=== PATIENT | male | born 1985 | race Caucasian/White ===

== ENCOUNTER 2017-12-25 17:13 | Emergency (ER) | payer OTHER ==
[2017-12-25] MEDS ORDERED: SODIUM CHLORIDE 0.9% 1,000 ML IV STA (17:56)
[2017-12-25] MEDS ORDERED: SODIUM CHLORIDE 0.9% 500 ML IV STA (17:56)
--- NOTE | 2017-12-25 17:58 | XR ---
EXAMINATION TYPE: XR chest 1V portable DATE OF EXAM: 12/25/2017 COMPARISON: NONE HISTORY: Chest pain and shortness of breath for 2 weeks TECHNIQUE: Single frontal view of the chest is obtained. FINDINGS: There is no focal air space opacity, pleural effusion, or pneumothorax seen. The cardiac silhouette size is upper limits of normal size exaggerated by the portable nature of examination. T he osseous structures are intact. IMPRESSION: No acute cardiopulmonary process.
[2017-12-25 17:59] VITALS: RESP 20
[2017-12-25] MEDS ORDERED: IPRATROPIUM 0.5 MG/2.5 ML NEBU INHALATION STA (18:11)
[2017-12-25] MEDS ORDERED: methylPREDNISolone SOD SUCCI 125 MG/2 ML VIAL IV STA (18:11)
[2017-12-25] MEDS ORDERED: ALBUTEROL NEBULIZED 2.5 MG/3 ML INHALATION STA (18:11)
[2017-12-25 18:25] LABS: Basophils # (A) 0.1 k/uL (0-0.2); Basophils % (A) 0 %; Eosinophils # (A) 0.3 k/uL (0-0.7); Eosinophils % (A) 2 %; HCT 47.2 % (39.0-53.0); HGB 15.8 gm/dL (13.0-17.5); Lymphocytes # (A) 3.5 k/uL (1.0-4.8); Lymphocytes % (A) 21 %; MCH 28.5 pg (25.0-35.0); MCHC 33.4 g/dL (31.0-37.0); MCV 85.6 fL (80.0-100.0); Mean Platelet Volume 7.4; Monocytes # (A) 0.7 k/uL (0-1.0); Monocytes % (A) 4 %; Neutrophils # (A) 12.1 k/uL (1.3-7.7); Neutrophils % (A) 72 %; Platelet Count 260 k/uL (150-450); RBC 5.52 m/uL (4.30-5.90); RDW 14.4 % (11.5-15.5); WBC 16.9 k/uL (3.8-10.6)
--- NOTE | 2017-12-25 18:26 | ED ---
General Adult HPI - General Chief complaint: Shortness of Breath Stated complaint: SOB, palpitations Time Seen by Provider: 12/25/17 17:41 Source: patient, RN notes reviewed, old records reviewed Mode of arrival: ambulatory Limitations: no limitations - History of Present Illness Initial comments: This is a 32-year-old male the ER for evaluation. They presents for evaluation significant shortness of breath. No specific chest pain just mainly exertional shortness of breath and dizziness and going on for quite some time. Patient has no known prior medical history of similar complaints. Patient states her family states patient does have history of factor V Leiden. Patient again has no chest pain. No recent travel history no significant sick contacts no surgical history. We will history of asthma although he feels like he is not wheezing, patient and nonsmoker. Patient states shortness of breath for 2 weeks increasing with significant exertion, today he could not even do simple tasks - Related Data Home Medications Medication Instructions Recorded Confirmed No Known Home Medications 12/25/17 12/25/17 Allergies Allergy/AdvReac Type Severity Reaction Status Date / Time cefaclor [From Ceclor] Allergy Unknown Verified 12/25/17 17:55 Childhood Review of Systems ROS Statement: Those systems with pertinent positive or pertinent negative responses have been documented in the HPI. ROS Other: All systems not noted in ROS Statement are negative. Past Medical History Past Medical History: Asthma History of Any Multi-Drug Resistant Organisms: None Reported Past Surgical History: Orthopedic Surgery Additional Past Surgical History / Comment(s): ankle surgery, tibia/fibula surgery Past Psychological History: No Psychological Hx Reported Smoking Status: Former smoker Past Alcohol Use History: Occasional Past Drug Use History: None Reported General Exam Limitations: no limitations General appearance: alert, in no apparent distress, anxious Head exam: Present: atraumatic, normocephalic, normal inspection Eye exam: Present: normal appearance, PERRL, EOMI. Absent: scleral icterus, conjunctival injection, periorbital swelling ENT exam: Present: normal exam, mucous membranes moist Neck exam: Present: normal inspection. Absent: tenderness, meningismus, lymphadenopathy Respiratory exam: Present: normal lung sounds bilaterally, accessory muscle use , decreased breath sounds, prolonged expiratory. Absent: respiratory distress, wheezes, rales, rhonchi, stridor Cardiovascular Exam: Present: normal rhythm, tachycardia, normal heart sounds. Absent: systolic murmur, diastolic murmur, rubs, gallop, clicks GI/Abdominal exam: Present: soft, normal bowel sounds. Absent: distended, tenderness, guarding, rebound, rigid Extremities exam: Present: normal inspection, full ROM, normal capillary refill. Absent: tenderness, pedal edema, joint swelling, calf tenderness Back exam: Present: normal inspection Neurological exam: Present: alert, oriented X3, CN II-XII intact Psychiatric exam: Present: normal affect, normal mood Skin exam: Present: warm, dry, intact, normal color. Absent: rash Course Vital Signs 12/25/17 12/25/17 12/25/17 17:28 17:57 18:49 Temperature 98.9 F Pulse Rate 119 H 111 H Respiratory 25 H 20 Rate Blood Pressure 125/76 O2 Sat by Pulse 86 L Oximetry 12/25/17 12/25/17 19:04 19:34 Temperature Pulse Rate 106 H 113 H Respiratory Rate Blood Pressure O2 Sat by Pulse Oximetry - Reevaluation(s) Reevaluation #1: 12/25/17 21:04 Spoke with patient and family at length regarding findings and symptoms and Reevaluation #2: 12/25/17 21:04 Medical records were thoroughly reviewed Reevaluation #3: 12/25/17 21:04 Spoke with [facility] regarding transfer, they are acceptance EKG Findings - EKG Comments: EKG Findings:: EKG shows sinus tachycardia rate 109, HI 140, QRS 90, QTC 500 Medical Decision Making - Medical Decision Making 30 female the ER for evaluation of significant shortness of breath and exertional dyspnea, positive PE, will transfer from [facility] secondary to hypoxia, right heart strain - Lab Data Result diagrams: 12/25/17 18:13 12/25/17 18:13 Lab Results 12/25/17 12/25/17 12/25/17 Range/Units 18:13 18:13 18:13 WBC 16.9 H (3.8-10.6) k/uL RBC 5.52 (4.30-5.90) m/uL Hgb 15.8 (13.0-17.5) gm/dL Hct 47.2 (39.0-53.0) % MCV 85.6 (80.0-100.0) fL MCH 28.5 (25.0-35.0) pg MCHC 33.4 (31.0-37.0) g/dL RDW 14.4 (11.5-15.5) % Plt Count 260 (150-450) k/uL Neutrophils % 72 % Lymphocytes % 21 % Monocytes % 4 % Eosinophils % 2 % Basophils % 0 % Neutrophils # 12.1 H (1.3-7.7) k/uL Lymphocytes # 3.5 (1.0-4.8) k/uL Monocytes # 0.7 (0-1.0) k/uL Eosinophils # 0.3 (0-0.7) k/uL Basophils # 0.1 (0-0.2) k/uL PT (9.0-12.0) sec INR (<1.2) APTT (22.0-30.0) sec D-Dimer (<0.60) mg/L FEU Sodium 140 (137-145) mmol/L Potassium 4.5 (3.5-5.1) mmol/L Chloride 107 (98-107) mmol/L Carbon Dioxide 23 (22-30) mmol/L Anion Gap 10 mmol/L BUN 14 (9-20) mg/dL Creatinine 1.09 (0.66-1.25) mg/dL Est GFR (CKD-EPI)AfAm >90 (>60 ml/min/1.73 sqM) Est GFR (CKD-EPI)NonAf 89 (>60 ml/min/1.73 sqM) Glucose 99 (74-99) mg/dL Calcium 9.4 (8.4-10.2) mg/dL Magnesium 2.0 (1.6-2.3) mg/dL Total Bilirubin 1.8 H (0.2-1.3) mg/dL AST 28 (17-59) U/L ALT 35 (21-72) U/L Alkaline Phosphatase 76 (38-126) U/L Total Creatine Kinase 134 (55-170) U/L CK-MB (CK-2) 1.9 (0.0-2.4) ng/mL CK-MB (CK-2) Rel Index 1.4 Troponin I 0.177 H* (0.000-0.034) ng/mL NT-Pro-B Natriuret Pep pg/mL Total Protein 6.9 (6.3-8.2) g/dL Albumin 4.1 (3.5-5.0) g/dL 12/25/17 12/25/17 Range/Units 18:13 18:13 WBC (3.8-10.6) k/uL RBC (4.30-5.90) m/uL Hgb (13.0-17.5) gm/dL Hct (39.0-53.0) % MCV (80.0-100.0) fL MCH (25.0-35.0) pg MCHC (31.0-37.0) g/dL RDW (11.5-15.5) % Plt Count (150-450) k/uL Neutrophils % % Lymphocytes % % Monocytes % % Eosinophils % % Basophils % % Neutrophils # (1.3-7.7) k/uL Lymphocytes # (1.0-4.8) k/uL Monocytes # (0-1.0) k/uL Eosinophils # (0-0.7) k/uL Basophils # (0-0.2) k/uL PT 10.8 (9.0-12.0) sec INR 1.1 (<1.2) APTT 24.6 (22.0-30.0) sec D-Dimer 5.44 H (<0.60) mg/L FEU Sodium (137-145) mmol/L Potassium (3.5-5.1) mmol/L Chloride (98-107) mmol/L Carbon Dioxide (22-30) mmol/L Anion Gap mmol/L BUN (9-20) mg/dL Creatinine (0.66-1.25) mg/dL Est GFR (CKD-EPI)AfAm (>60 ml/min/1.73 sqM) Est GFR (CKD-EPI)NonAf (>60 ml/min/1.73 sqM) Glucose (74-99) mg/dL Calcium (8.4-10.2) mg/dL Magnesium (1.6-2.3) mg/dL Total Bilirubin (0.2-1.3) mg/dL AST (17-59) U/L ALT (21-72) U/L Alkaline Phosphatase (38-126) U/L Total Creatine Kinase (55-170) U/L CK-MB (CK-2) (0.0-2.4) ng/mL CK-MB (CK-2) Rel Index Troponin I (0.000-0.034) ng/mL NT-Pro-B Natriuret Pep 2730 pg/mL Total Protein (6.3-8.2) g/dL Albumin (3.5-5.0) g/dL - Radiology Data Radiology results: report reviewed (Chest x-ray negative CTA chest positive significant PE), image reviewed Critical Care Time Critical Care Time: Yes Total Critical Care Time: 31 Disposition Clinical Impression: Acute pulmonary embolism, Factor V Leiden, Hypoxia, Elevated troponin Disposition: OTHER INSTITUTION NOT DEFINED Condition: Fair Is patient prescribed a controlled substance at d/c from ED?: No Referrals: None,Stated [Primary Care Provider] - 1-2 days - Out of Hospital Transfer - Req. Specs Out of Hospital Transfer - Requested Specifics: Other Emergency Center ([facility])
[2017-12-25 18:32] LABS: ALT 35 U/L (21-72); AST 28 U/L (17-59); Albumin 4.1 g/dL (3.5-5.0); Alkaline Phosphatase 76 U/L (38-126); Anion Gap 10 mmol/L; Blood Urea Nitrogen 14 mg/dL (9-20); Calcium 9.4 mg/dL (8.4-10.2); Carbon Dioxide 23 mmol/L (22-30); Chloride 107 mmol/L (98-107); Glucose 99 mg/dL (74-99); Potassium 4.5 mmol/L (3.5-5.1); Sodium 140 mmol/L (137-145); Total Bilirubin 1.8 mg/dL (0.2-1.3); Total Protein 6.9 g/dL (6.3-8.2)
[2017-12-25] MEDS: MAGNESIUM SULFATE-D5W PMX 1 GM in DEXTROSE/WATER 1 100ML.BAG IVPB SCH ×2 (18:40→19:52)
[2017-12-25 18:47] LABS: INR 1.1 (<1.2); Partial Thromboplastin Time 24.6 sec (22.0-30.0); Prothrombin Time 10.8 sec (9.0-12.0)
[2017-12-25 18:52] LABS: D-Dimer 5.44 mg/L FEU (<0.60)
[2017-12-25 18:55] LABS: Creatine Kinase MB 1.9 ng/mL (0.0-2.4)
[2017-12-25 18:58] LABS: Troponin I 0.177 ng/mL (0.000-0.034)
--- NOTE | 2017-12-25 20:21 | CT ---
EXAMINATION TYPE: CT angio chest DATE OF EXAM: 12/25/2017 COMPARISON: NONE HISTORY: Difficulty in breathing x [address] DLP: 370.3 mGycm. Automated Exposure Control for Dose Reduction was Utilized. CONTRAST: CTA scan of the thorax is performed with IV Contrast, patient injected with 100 mL of Isovue 370, pul monary embolism protocol. MIP Images are created on CT scanner and reviewed. FINDINGS: LUNGS: Right basilar linear opacity contiguous with the pleural surface likely relates to atelectasis although early pulmonary infarct is possible. Patchy left basilar atelectasis and solitary periphera l left lower lobe bleb are also noted. There is no pleural effusion or pneumothorax seen. The trache obronchial tree is patent. MEDIASTINUM: There are large pulmonary emboli bilaterally beginning at the right and left main pulmon chetna arteries extending into the segmental and subsegmental branches of each pulmonary lobe. There is also associated enlargement of the main pulmonary artery measuring up to 3.4 cm and abnormal right ve ntricular to left ventricular ratio as well as reflux of contrast into the inferior vena cava. Findin gs are suggestive of right heart strain. There are no greater than 1 cm hilar or mediastinal lymph n odes. Heart is upper limits of normal size. No pericardial effusion. OTHER: Bilateral overall symmetric retroareolar gynecomastia is identified. IMPRESSION: 1. Large bilateral pulmonary emboli beginning in the right and left main pulmonary arteries extending into the segmental and subsegmental branches of each pulmonary lobes bilaterally. Additionally there is evidence of right heart strain. Findings were communicated with the ER ordering provider at 8:18 PM on 12/25/[address] Guzmán. 2. Bibasilar atelectasis with possible early right lower lobe pulmonary infarct.
[2017-12-25] MEDS ORDERED: HEPARIN SOD,PORK IN 0.45% NACL 25,000 UNIT in 0.45% NACL 1 500ML.BAG IV SCH (20:30)
[2017-12-25] MEDS ORDERED: HEPARIN SODIUM,PORCINE 10,000 UNIT/ML 1 ML VIAL IV ONE (20:30)
[2017-12-25] MEDS ORDERED: HEPARIN SODIUM,PORCINE 5,000 UNIT/ML 1 ML VIAL IV PRN (20:30)
[2017-12-25 21:32] VITALS: PULSE 106
[2017-12-25 21:35] VITALS: BP 144/91; TEMP 97.8
== END 2017-12-25 21:20 | disposition other institution (70) ==
LOC: EC 17:13
DX: I26.99 Other pulmonary embolism without acute cor pulmonale (principal); D68.51 Activated protein C resistance; R09.02 Hypoxemia; R79.89 Other specified abnormal findings of blood chemistry; J45.909 Unspecified asthma, uncomplicated; Z87.891 Personal history of nicotine dependence; Z88.1 Allergy status to other antibiotic agents
CPT/HCPCS: 99291; 96365; 96366; 96375 ×2; 36415; 94644; 93005; 85379; 83880; 80053; 82550; 82553; 83735; 84484; 85025; 85610; 85730; 71045; 71275; J1644 ×2; J2930; J3475; Q9967

== ENCOUNTER → 2018-03-04 | Outpatient (CLI) | payer OTHER ==
--- NOTE | 2018-03-05 11:19 | ECHOF ---
Referral Reason:I42.9 Cardiomyopathy, unspecified MEASUREMENTS -------- HEIGHT: 188.0 cm WEIGHT: 108.9 kg BP: RVIDd: 3.3 cm (< 3.3) IVSd: 1.3 cm (0.6 - 1.1) LVIDd: 4.6 cm (3.9 - 5.3) LVPWd: 1.2 cm (0.6 - 1.1) IVSs: 1.5 cm LVIDs: 3.2 cm LVPWs: 1.5 cm LAESV Index (A-L): 28.81 ml/m Ao Diam: 3.7 cm (2.0 - 3.7) AV Cusp: 2.6 cm (1.5 - 2.6) LA Diam: 3.3 cm (2.7 - 3.8) EPSS: 0.4 cm MV E John: 0.72 m/s MV DecT: 289 ms MV A John: 0.64 m/s MV E/A Ratio: 1.14 RAP: 5.00 mmHg RVSP: 9.78 mmHg MV EF SLOPE: 125.07 mm/s (70 - 150) MV EXCURSION: 2.13 cm (> 18.000) FINDINGS -------- Sinus rhythm. This was a technically good study. The left ventricular size is normal. There is mild concentric left ventricular hypertrophy. Overa ll left ventricular systolic function is normal with, an EF between 55 - 60 %. The right ventricle is mildly enlarged. Normal LA size by volume 22+/-6 ml/m2. The right atrium is normal in size. The aortic valve is trileaflet, and appears structurally normal. No aortic stenosis or regurgitation. The mitral valve leaflets are mildly thickened. There is trace to mild mitral regurgitation. Trace tricuspid regurgitation present. Right ventricular systolic pressure is normal at < 35 mmHg. There is no evidence of pulmonary hypertension. Trace/mild (physiologic) pulmonic regurgitation. The aortic root size is normal. Normal inferior vena cava with normal inspiratory collapse consistent with estimated right atrial pre ssure of 5 mmHg. There is no pericardial effusion. CONCLUSIONS -------- 1. Sinus rhythm. 2. This was a technically good study. 3. The left ventricular size is normal. 4. There is mild concentric left ventricular hypertrophy. 5. Overall left ventricular systolic function is normal with, an EF between 55 - 60 %. 6. The right ventricle is mildly enlarged. 7. Normal LA size by volume 22+/-6 ml/m2. 8. The aortic valve is trileaflet, and appears structurally normal. No aortic stenosis or regurgitati on. 9. The mitral valve leaflets are mildly thickened. 10. There is trace to mild mitral regurgitation. 11. Trace tricuspid regurgitation present. 12. Right ventricular systolic pressure is normal at < 35 mmHg. 13. There is no evidence of pulmonary hypertension. 14. Trace/mild (physiologic) pulmonic regurgitation. 15. The aortic root size is normal. 16. There is no pericardial effusion. PENS AND PENCILS DIPPER: Tex Tracey RDCS
== END | disposition home or self-care (01) ==
LOC: RADECHMAIN 16:54
PROVIDERS: ATTEND Family Medicine
DX: I34.0 Nonrheumatic mitral (valve) insufficiency (principal); I37.1 Nonrheumatic pulmonary valve insufficiency; I51.7 Cardiomegaly
CPT/HCPCS: 93306

== ENCOUNTER → 2019-02-19 | Outpatient (CLI) | payer OTHER ==
--- NOTE | 2019-02-19 15:30 | US ---
EXAMINATION TYPE: US venous doppler duplex LE RT DATE OF EXAM: 02/19/2019 1:59 PM COMPARISON: Previous exam 08/19/2018 CLINICAL HISTORY: I82.491 EMBOLISM, THROMBOSIS. Hx of DVT on blood thinners. SIDE PERFORMED: Right TECHNIQUE: The lower extremity deep venous system is examined utilizing real time linear array sonog rajat with graded compression, doppler sonography and color-flow sonography. VESSELS IMAGED: External Iliac Vein (EIV) Common Femoral Vein Deep Femoral Vein Greater Saphenous Vein * Femoral Vein Popliteal Vein Small Saphenous Vein * Proximal Calf Veins (* superficial vessels) Right popliteal vein is again noted to be decreased in size, there is color flow detected, low-level internal echoes are present with color-flow also present. Right Leg: Findings suggest chronic DVT in the Popliteal Vein mid to distal level with thready flow noted. IMPRESSION: Findings are similar to previous exam. Eccentric thrombus, low flow noted within the popl iteal vein as on prior exam.
== END | disposition home or self-care (01) ==
LOC: RADUSWWP 13:35
PROVIDERS: ATTEND Internal Medicine Hematology & Oncology
DX: I82.431 Acute embolism and thrombosis of right popliteal vein (principal); Z88.1 Allergy status to other antibiotic agents

== ENCOUNTER → 2020-01-20 | Outpatient (CLI) | payer BC | END | disposition home or self-care (01) | LOC: LABWHC1 12:26 | PROVIDERS: ATTEND Emergency Medicine | DX: Z20.828 Contact with and (suspected) exposure to other viral communicable diseases (principal) | CPT/HCPCS: U0003; C9803 ==

== ENCOUNTER → 2020-02-17 | Outpatient (CLI) | payer BC ==
--- NOTE | 2020-02-17 14:03 | US ---
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 History of DVT right leg SIDE PERFORMED: right TECHNIQUE: The lower extremity deep venous system is examined utilizing real time linear array sonog rajat with graded compression, doppler sonography and color-flow sonography. VESSELS IMAGED: External Iliac Vein (EIV) Common Femoral Vein Deep Femoral Vein Greater Saphenous Vein * Femoral Vein Popliteal Vein Small Saphenous Vein * Proximal Calf Veins (* superficial vessels) Right Leg: *positive for DVT, right popliteal vein, as on prior exams IMPRESSION: 1. Previous deep venous thrombosis within the popliteal vein is again evident.
== END | disposition home or self-care (01) ==
LOC: RADUSWWP 12:30
PROVIDERS: ATTEND Family Medicine
DX: I82.501 Chronic embolism and thrombosis of unspecified deep veins of right lower extremity (principal)

== ENCOUNTER → 2024-07-28 | Outpatient (CLI) | payer BC ==
[2024-07-28 16:47] LABS: ALT 38 U/L (10-49); AST 41 U/L (14-35); Albumin 4.4 g/dL (3.8-4.9); Albumin/Globulin Ratio 1.57 Ratio (1.60-3.17); Alkaline Phosphatase 60 U/L (41-126); BUN/Creat Ratio 9.58 Ratio (12.00-20.00); Blood Urea Nitrogen 11.5 mg/dL (9.0-27.0); Calcium 9.7 mg/dL (8.7-10.3); Chloride 103 mmol/L (96-109); Globulin 2.8 g/dL (1.6-3.3); Glucose 91 mg/dL (70-110); Potassium 4.3 mmol/L (3.5-5.5); Sodium 142 mmol/L (135-145); Total Bilirubin 1.7 mg/dL (0.3-1.2); Total Protein 7.2 g/dL (6.2-8.2)
[2024-07-28 16:54] LABS: Basophils # (A) 0.07 X 10*3/uL (0.00-0.10); Basophils % (A) 0.6 %; Eosinophils # (A) 0.18 X 10*3/uL (0.04-0.35); Eosinophils % (A) 1.5 %; HCT 48.4 % (39.6-50.0); HGB 15.9 g/dL (13.0-17.0); Lymphocytes # (A) 3.02 X 10*3/uL (0.90-5.00); Lymphocytes % (A) 25.3 %; MCH 30.2 pg (27.0-32.0); MCHC 32.9 g/dL (32.0-37.0); Mean Platelet Volume 10.3 FL (9.5-12.2); Monocytes # (A) 0.73 X 10*3/uL (0.20-1.00); Monocytes % (A) 6.1 %; NRBC Per 100 WBC 0 X 10*3/uL (0.00-0.01); Neutrophils % (A) 66.2 %; Platelet Count 344 X 10*3/uL (140-440); RBC 5.26 X 10*6/uL (4.40-5.60); RDW 13.1 % (11.5-14.5); WBC 11.94 X 10*3/uL (4.50-10.00)
== END | disposition home or self-care (01) ==
LOC: LABWHC1 10:39
PROVIDERS: ATTEND Family Medicine
DX: Z00.00 Encounter for general adult medical examination without abnormal findings (principal)
CPT/HCPCS: 36415; 80053; 80061; 84443; 85025